=== PATIENT | female | born 1985 | race Caucasian/White ===

== ENCOUNTER 2024-01-01 10:55 | Emergency (ER) | payer OTHER ==
--- NOTE | 2024-01-01 11:22 | ED ---
Nausea/Vomiting/Diarrhea HPI - General Chief complaint: Nausea/Vomiting/Diarrhea Stated complaint: NVD,8wks Time Seen by Provider: 01/01/24 11:05 Source: patient, RN notes reviewed Mode of arrival: ambulatory Limitations: no limitations - History of Present Illness Initial comments: 38-year-old at 8 weeks gestation presents emergency department chief complaint of nausea, vomiting, diarrhea the last 4 days. Patient states that she had a obstetric checkup on Wednesday with the fertility clinic she is following with, and her has been progressing along well. On Wednesday, patient started to experience symptoms of diarrhea and vomiting. Patient denies hematochezia, dysuria, hematuria, hematemesis, dark and tarry stools. States that she is to feel dizzy and lightheaded due to limited appetite over these past few days. Has not taken any medications at home to alleviate her symptoms. Patient denies history of abdominal surgeries, nephrolithiasis. She has a history of spontaneous at 7 weeks. - Related Data Allergies Allergy/AdvReac Type Severity Reaction Status Date / Time No Known Allergies Allergy Verified 01/01/24 11:05 Review of Systems ROS Statement: Those systems with pertinent positive or pertinent negative responses have been documented in the HPI. ROS Other: All systems not noted in ROS Statement are negative. Past Medical History Past Medical History: No Reported History History of Any Multi-Drug Resistant Organisms: None Reported Past Surgical History: No Surgical Hx Reported Past Psychological History: No Psychological Hx Reported Smoking Status: Never smoker Past Alcohol Use History: None Reported Past Drug Use History: None Reported General Exam Limitations: no limitations General appearance: alert, in no apparent distress Head exam: Present: atraumatic, normocephalic, normal inspection Eye exam: Present: normal appearance, PERRL, EOMI. Absent: scleral icterus, conjunctival injection, periorbital swelling ENT exam: Present: normal exam, mucous membranes moist Neck exam: Present: normal inspection. Absent: tenderness, meningismus, lymphadenopathy Respiratory exam: Present: normal lung sounds bilaterally. Absent: respiratory distress, wheezes, rales, rhonchi, stridor Cardiovascular Exam: Present: regular rate, normal rhythm, normal heart sounds. Absent: systolic murmur, diastolic murmur, rubs, gallop, clicks GI/Abdominal exam: Present: soft, tenderness (mild diffuse tenderness to palpation ), normal bowel sounds. Absent: distended, guarding, rebound, rigid Extremities exam: Present: normal inspection, full ROM, normal capillary refill. Absent: tenderness, pedal edema, joint swelling, calf tenderness Back exam: Present: normal inspection Neurological exam: Present: alert, oriented X3, CN II-XII intact Psychiatric exam: Present: normal affect, normal mood Skin exam: Present: warm, dry, intact, normal color. Absent: rash Course Vital Signs 01/01/24 11:02 Temperature 98 F Pulse Rate 68 Respiratory 18 Rate Blood Pressure 138/92 O2 Sat by Pulse 98 Oximetry - Reevaluation(s) Reevaluation #1: Evaluated patient after dose of Reglan given near completion of fluid bolus. Patient states that she feels more awake and her abdominal pain has markedly subsided. 01/01/24 12:09 Medical Decision Making - Medical Decision Making Was pt. sent in by a medical professional or institution (, PA, OPERATING COST CLERK, urgent care, hospital, or alf...) When possible be specific @ -No Did you speak to anyone other than the patient for history (EMS, parent, family, police, friend...)? What history was obtained from this source @ -No Did you review nursing and triage notes (agree or disagree)? Why? @ -I reviewed and agree with nursing and triage notes Were old charts reviewed (outside hosp., previous admission, EMS record, old EKG, old radiological studies, urgent care reports/EKG's, alf records)? Report findings @ -No old charts were reviewed Differential Diagnosis (chest pain, altered mental status, abdominal pain women, abdominal pain men, vaginal bleeding, weakness, fever, dyspnea, syncope, headache, dizziness, GI bleed, back pain, seizure, CVA, palpatations, mental health, musculoskeletal)? @ -Differential Abdominal Pain Women: Appendicitis, Cholecystitis, diverticulosis, ischemic bowel, pancreatitis, hepatitis, UTI, gastroenteritis, AAA, incarcerated hernia, bowel obstruction, constipation, inflammatory bowel, hepatitis, peptic ulcer disease, splenic infarction, perforated viscus, vulvitis, ovarian torsion, PID, kidney stone, placenta abruption, this is not meant to be an all-inclusive list EKG interpreted by me (3pts min.). @ -None X-rays interpreted by me (1pt min.). @ -None done CT interpreted by me (1pt min.). @ -None done U/S interpreted by me (1pt. min.). @ transabdominal ultrasound reveals a live intrauterine gestation with ultrasound age of 8 weeks 4 days. What testing was considered but not performed or refused? (CT, X-rays, U/S, labs)? Why? @ -None What meds were considered but not given or refused? Why? @ -None Did you discuss the management of the patient with other professionals (professionals i.e. , PA, OPERATING COST CLERK, lab, RT, psych nurse, neonatal social worker, lawyer criminal, teacher, parking regulation enforcement officer, protective services case worker)? Give summary @ -No Was smoking cessation discussed for >3mins.? @ -No Was critical care preformed (if so, how long)? @ -No Were there social determinants of health that impacted care today? How? (Homelessness, low income, unemployed, alcoholism, drug addiction, mustafa sportation, low edu. Level, literacy, decrease access to med. care, [facility], rehab)? @ -No Was there de-escalation of care discussed even if they declined (Discuss DNR or withdrawal of care, Hospice)? DNR status @ -No What co-morbidities impacted this encounter? (DM, HTN, Smoking, COPD, CAD, Cancer, CVA, ARF, Chemo, Hep., AIDS, mental health diagnosis, sleep apnea, morbid obesity)? @ -8 Weeks of Was patient admitted / discharged? Hospital course, mention meds given and route, prescriptions, significant lab abnormalities, going to OR and other pertinent info. @ -38-year-old female presents with chief complaint of nausea, vomiting, diarrhea. Patient requested that a transvaginal ultrasound be completed to eluate the fetus's heartbeat. The patient's history of numerous episodes of em esis and diarrhea over the past few days, 1 L fluid bolus given. Patient also checked for influenza, COVID, RSV. transabdominal ultrasound reveals a live intrauterine gestation with ultrasound age of 8 weeks 4 days and heartbeat of 156. Symptoms decreasing after fluid administration and Reglan, patient is comfortable for discharge. If patient started back of Zofran for symptoms of nausea and diarrhea over the next few days. Discussed that patient symptoms likely secondary to gastroenteritis. Undiagnosed new problem with uncertain prognosis? @ -No Drug Therapy requiring intensive monitoring for toxicity (Heparin, Nitro, Insulin, Cardizem)? @ -No Were any procedures done? @ -No Diagnosis/symptom? @ -Nausea, vomiting, diarrhea, gastroenteritis Acute, or Chronic, or Acute on Chronic? @ -acute Uncomplicated (without systemic symptoms) or Complicated (systemic symptoms)? @ -Uncomplicated Side effects of treatment? @ -No Exacerbation, Progression, or Severe Exacerbation? @ -No Poses a threat to life or bodily function? How? (Chest pain, [place], [place], pneumonia, PE, COPD, DKA, ARF, appy, cholecystitis, CVA, Diverticulitis, Homicidal, Suicidal, threat to staff... and all critical care pts) @ -No - Lab Data Lab Results 01/01/24 Range/Units 11:26 Influenza Type A (PCR) Not Detected (Not Detectd) Influenza Type B (PCR) Not Detected (Not Detectd) RSV (PCR) Not Detected (Not Detectd) SARS-CoV-2 (PCR) Not Detected (Not Detectd) Disposition Clinical Impression: Dehydration, Gastroenteritis Narrative: Please return to the Emergency Department if symptoms worsen or any other concerns. Disposition: HOME SELF-CARE Condition: Good Instructions (If sedation given, give patient instructions): Acute Nausea and Vomiting (ED) Is patient prescribed a controlled substance at d/c from ED?: No Referrals: Nonstaff,Physician [REFERRING] - 1-2 days Time of Disposition: 12:45
[2024-01-01] MEDS: SODIUM CHLORIDE 0.9% 1,000 ML IV STA (11:30)
[2024-01-01] MEDS: METOCLOPRAMIDE 5 MG/ML 2 ML VIAL IVP STA (11:30)
[2024-01-01 11:31] VITALS: PULSE 68; RESP 18; TEMP 98
--- NOTE | 2024-01-01 12:20 | US ---
EXAMINATION TYPE: Transabdominal DATE OF EXAM: 01/01/2024 12:07 PM COMPARISON: NONE CLINICAL INDICATION: Female, 38 years old with history of dehydration, hx of spontaneous ; Ari wang states she has been N/V x 4 days EXAM PERFORMED: Transabdominal (TA) EXAM MEASUREMENTS: GESTATIONAL AGE / DATING Physician Established: Not yet established Dates by LMP: (8 weeks/5 days) EDC: 08/07/2024 Dates by First Scan: Unknown Dates by Current Scan for: (8 weeks/4 days) EDC: 08/08/2024 MATERNAL ANATOMY Uterus: 10.8 x 8.0 x 6.2 cm Right Ovary: 3.9 x 2.3 x 2.2 cm Left Ovary: 3.1 x 1.6 x 1.7 cm Post CDS / Adnexa: no free fluid Presence of free fluid: no Presence of corpus luteal cyst: right ovary= 1.8 cm Presence of subchorionic bleed: 1.8 x 1.2 x 0.8 cm GESTATION / SURVEY CRL: 1.9 cm (8 weeks/4 days) MSD: seen, not measured Yolk Sac (normal less than 6mm): 3.3 mm Heart Rate: 156 bpm Rhythm: Normal IUP: Viable IUP Date of LMP: 11/01/2023, [id number] Beta HcG (if available): Not available at this time IMPRESSION: Single live intrauterine gestation with ultrasound age of 8 weeks 4 days.
[2024-01-01] MEDS: ONDANSETRON 4 MG ODT STARTER PACK 2 TAB BTL PO STA (12:55)
[2024-01-01 13:08] VITALS: BP 125/63
== END 2024-01-01 13:00 | disposition home or self-care (01) ==
LOC: EC 10:55
DX: O99.611 Diseases of the digestive system complicating pregnancy, first trimester (principal); O99.281 Endocrine, nutritional and metabolic diseases complicating pregnancy, first trimester; K52.9 Noninfective gastroenteritis and colitis, unspecified; E86.0 Dehydration; Z20.822 Contact with and (suspected) exposure to COVID-19; Z3A.08 8 weeks gestation of pregnancy
CPT/HCPCS: 87636; 76801; 99284; 96374; 96361; J2765; S0119